=== PATIENT | male | born 2000 | race African-American/Black ===

== ENCOUNTER 2021-11-30 08:55 | Outpatient (CLI) | payer SELFPAY ==
[2021-11-30 11:29] LABS: #Eosinphils 0.2 10x3/uL (0.0-0.5); #Monocytes 0.7 10x3/uL (0.0-1.1); #Neutrophils 4.2 10x3/uL (1.5-8.4); %Basophils 0.6 % (0.0-2.0); %Eosinophils 2.4 % (0.0-6.0); %Lymphocytes 28.4 % (18.0-47.0); %Monocytes 9.6 % (0.0-10.0); %Neutrophils 58.9 % (40.0-75.0); Hemoglobin 14.2 g/dL (13.5-17.5); Mean Corpuscular HGB CONC 30.9 g/dL (32.0-36.0); Mean Corpuscular Hemoglobin 27.6 pg (27.0-33.0); Mean Corpuscular Volume 89.3 fl (81.2-95.1); Mean Platelet Volume 12.8 fl (7.4-10.4); Platelet Count 197 10x3/uL (150-450); RBC Distribution Width 11.3 % (11.5-14.5); Red Blood Cell (RBC) Count 5.15 10x6/uL (4.32-5.72); White Blood Cell (WBC) Count 7.2 10x3/uL (3.5-10.5)
[2021-11-30 17:57] LABS: SARS-CoV-2 PCR by NAA Not Detected (NotDetected)
== END 2021-11-30 08:56 | disposition home or self-care (01) ==
LOC: LABBT 08:55
PROVIDERS: ATTEND Orthopaedic Surgery Hand Surgery
DX: Z01.812 Encounter for preprocedural laboratory examination (principal); S68.111A Complete traumatic metacarpophalangeal amputation of left index finger, initial encounter; M89.8X4 Other specified disorders of bone, hand; S61.301D Unspecified open wound of left index finger with damage to nail, subsequent encounter; Z20.822 Contact with and (suspected) exposure to COVID-19
CPT/HCPCS: 85025; U0003; U0005

== ENCOUNTER 2021-12-04 11:26 | Day surgery (SDC) | payer OTHER ==
[2021-11-28 11:01] VITALS: BMI 25.8
[2021-12-04] MEDS ORDERED: ceFAZolin 2 GM/DEX 5% 100 ML BAG ONE (12:44)
[2021-12-04] MEDS ORDERED: Fentanyl 100 MCG/2 ML VIAL ONE ×2 (14:30→15:07)
[2021-12-04] MEDS ORDERED: Bacitracin Zinc Ointment 30 gm TUBE ONE (15:26)
[2021-12-04] MEDS ORDERED: Bupivacaine PF 0.5% 30 ML VIAL ONE (15:26)
[2021-12-04] MEDS ORDERED: Ondansetron PF 4 MG/2 ML Vial ONE (15:39)
[2021-12-04] MEDS ORDERED: Lidocaine 1% PF 5 ML VIAL ONE (15:39)
[2021-12-04] MEDS ORDERED: Ketorolac Tromethamine 30 MG/ML VIAL ONE (15:39)
[2021-12-04] MEDS ORDERED: PROPOFOL 200 MG/20 ML VIAL ONE (15:39)
[2021-12-04] MEDS ORDERED: Dexamethasone 20 MG/5 ML VIAL ONE (15:39)
== END 2021-12-04 18:35 | disposition home or self-care (01) ==
LOC: SDC 11:26
PROVIDERS: ATTEND Orthopaedic Surgery Hand Surgery
PROC: 0HQQXZZ Repair Finger Nail, External Approach (ICD-10-PCS; principal; 2021-12-04)
PROC: 0PBT0ZZ Excision of Right Finger Phalanx, Open Approach (ICD-10-PCS; principal; 2021-12-04)
DX: T87.31 Neuroma of amputation stump, right upper extremity (principal); M89.8X4 Other specified disorders of bone, hand; Y83.8 Other surgical procedures as the cause of abnormal reaction of the patient, or of later complication, without mention of misadventure at the time of the procedure
CPT/HCPCS: 76000; 88304; 88305; 88307; 88311; J1100; J1885; J2405; J2704; J3010; S0020